=== PATIENT | female | born 1965 | race Two or more races ===

== ENCOUNTER 2024-02-21 15:19 | Emergency (ER) | payer OTHER ==
[~2024-02-21] VITALS: Ht 167.6 cm; Wt 72.6 kg
[2024-02-21] MEDS ORDERED: FARXIGA10 MG PO (15:44)
[2024-02-21] MEDS ORDERED: METFORMIN HCL500 M3 PO (15:44)
[2024-02-21] MEDS ORDERED: RESTORIL15 M1 PO (15:44)
[2024-02-21] MEDS ORDERED: NEURONTIN300 MG (15:44)
[2024-02-21] MEDS ORDERED: SINGULAIR10 MG PO (15:44)
[2024-02-21] MEDS ORDERED: MUPIROCIN15 GM TOP (18:16)
== END 2024-02-21 19:10 | disposition home or self-care (01) ==
LOC: ER 15:21
DX: L01.00 Impetigo, unspecified (principal); R21 Rash and other nonspecific skin eruption